=== PATIENT | male | born 1960 | race Caucasian/White ===

== ENCOUNTER 2017-06-08 07:35 | Emergency (ER) | payer BC, OTHER ==
[~2017-06-08] VITALS: Ht 177.8 cm; Wt 83.0 kg
[2017-06-08 07:38] VITALS: BP 184/86; PULSE 71; RESP 16; TEMP 98; O2SAT 98
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
--- NOTE | 2017-06-08 09:27 | RADRPT ---
EXAM DATE/TIME: 06/08/2017 08:52 [facility] COMPARISON: No previous studies available for comparison. INDICATIONS : Progressive, shooting pain down both arms, now with numbness to left hand and forearm. RADIATION DOSE: 26.50 CTDIvol (mGy) MEDICAL HISTORY : None SURGICAL HISTORY : None. ENCOUNTER: Initial ACUITY: 4 - 6 days PAIN SCALE: 7/10 LOCATION: Right neck TECHNIQUE: Volumetric scanning of the cervical spine was performed. Multiplanar reconstructions in the sagittal, coronal and oblique axial planes were performed. Using automated exposure control and adjustment o f the mA and/or kV according to patient size, radiation dose was kept as low as reasonably achievable to obtain optimal diagnostic quality images. DICOM format image data is available electronically f or review and comparison. FINDINGS: VERTEBRAE: Normal vertebral body height. ALIGNMENT: No evidence of subluxation. C2-C3: The bony spinal canal is normal in size. No evidence of disc bulge or herniation. The neural forami na are bilaterally patent. C3-C4: The decubitus and foramina are adequate. There is mild facet arthritis on the right. There is minimal central disc bulge. C4-C5: There is a degenerated disc with minimal disc bulge and osteophytic ridging. There is moderate facet arthritis on the right. The thecal space and foramina are adequate. C5-C6: There is minimal disc bulge. The thecal space and foramina are adequate. There is mild facet arthriti s bilaterally. C6-C7: There is a degenerated disc with mild osteophytic ridging from the vertebral endplates. The facet leonor nts are intact. The thecal space and foramina are adequate. C7-T1: The bony spinal canal is normal in size. No evidence of disc bulge or herniation. The neural forami na are bilaterally patent. CONCLUSION: 1. Mild degenerative changes in the cervical spine as above. No acute fracture or destructive lesion identified. Stevan Nelson MD on June 08, 2017 at 9:22 Board Certified Radiologist. This report was verified electronically.
[2017-06-08] MEDS ORDERED: GABA300C5 PO (09:49)
== END 2017-06-08 10:08 | disposition home or self-care (01) ==
LOC: PHEFT 07:35
DX: G62.9 Polyneuropathy, unspecified (principal)
CPT/HCPCS: 72125; 99283